=== PATIENT | male | born 1935 | race Caucasian/White ===

== ENCOUNTER → 2016-05-11 | Outpatient (CLI) | payer OTHER | LOC: GMAH 10:47 | PROVIDERS: ATTEND Family Medicine | DX: I10 Essential (primary) hypertension (principal); Z12.5 Encounter for screening for malignant neoplasm of prostate ==

== ENCOUNTER 2016-08-17 12:55 | Emergency (ER) | payer OTHER ==
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
[2016-08-17] MEDS ORDERED: EPINEPHrine INJ 0.1 MG/ML 10 ML SYG IV ONE (14:00)
== END 2016-08-17 14:25 | disposition expired ==
LOC: ER 12:55
DX: I46.9 Cardiac arrest, cause unspecified (principal); I25.2 Old myocardial infarction; J44.9 Chronic obstructive pulmonary disease, unspecified; E11.9 Type 2 diabetes mellitus without complications